=== PATIENT | male | born 1990 | race Caucasian/White ===

== ENCOUNTER 2021-08-14 14:29 | Emergency (ER) | payer OTHER, SELFPAY ==
--- NOTE | ~2021-08-14 | XR_ITS ---
EXAM: XR tibia fibula RT 2V DATE: 08/14/2021 15:04 HISTORY: hit dee on [place] 10 days ago, brusing, swelling into ankle . COMPARISON: None available. FINDINGS: Normal mineralization. No fracture or dislocation. No lytic or blastic lesion. Joint space s are maintained. No erosion or periosteal change. Soft tissues within normal limits. IMPRESSION: No acute osseous finding in the right tibia or fibula. Reviewed, dictated and finalized at location K.
--- NOTE | 2021-08-14 14:35 | ER_ITS ---
This report was moved to the correct visit on 08/18/2021. Original report was signed by Perri Pablo APN 08/14/211999. HPI - Extremity Injury (Lower) General Stated Complaint: second opinion on right leg injury Time Seen by Provider: 08/14/21 14:30 Source: patient and RN notes reviewed History of Present Illness HPI Narrative: Patient is a 31-year-old male who presents the urgent care with complaints of right leg injury. Patient states that on 05 August he hit his dee on a trailer axle. Patient states he is proceeded to do normal activity on the and . States that he worked at [employer] show on his feet all day on the and after it was over he went to the emergency room due to the swelling and pain. Patient states that they did x-rays, from the knee down through the ankle which were all negative. Patient has been using crutches and keeping the leg elevated with ice and ibuprofen without much relief. Patient denies any chest pain or shortness of breath. States the swelling has not necessarily gotten worse but has not gotten much better since day 1. Patient reports of increased bruising and settling of the swelling to the ankle. No other acute complaints. No acute distress noted. Patient aware of the plan of care. Some parts of this dictation were generated by voice recognition software and may contain typographical and/or grammatical inaccuracies. Related Data Home Medications Medication Instructions Recorded Confirmed ibuprofen 600 mg tablet 1 tablet PO QID 08/14/21 08/14/21 Allergies Allergy/AdvReac Type Severity Reaction Status Date / Time amoxicillin Allergy Intermediate Rash Verified 08/14/21 14:58 Penicillins Allergy Intermediate Rash Verified 08/14/21 14:58 Review of Systems Review of Systems: CONSTITUTIONAL: Denies fever, chills, or sweats. EYES: Denies visual changes, redness, or discharge. ENT: Denies rhinorrhea, congestion, sore throat, or otalgia. CARDIOVASCULAR: Denies chest pain, palpitations, or edema. RESPIRATORY: Denies cough or dyspnea. GASTROINTESTINAL: Denies abdominal pain, nausea, vomiting, or diarrhea. GENITOURINARY: Denies dysuria or hematuria. SKIN: Denies rash or itching. MUSCULOSKELETAL: Reports of right lleg swelling/bruising/pain NEUROLOGIC: Denies headache, numbness, or weakness. All other systems reviewed are negative, except as documented in HPI. PMFSH Comments At the time of my signature, I reviewed and agree with the nursing past medical, surgical, social, and family history. There is no relevant family history pertinent to the patient complaint. Exam Narrative: GENERAL: This is a well-nourished, well-developed patient, in no apparent distress. HEAD: normocephalic, atraumatic. EYES: PERRL. Sclera clear/white. Vision is grossly intact. EARS: External ears normal NOSE: External nose normal with no obvious nasal discharge, nares without redness, no rhinorrhea. THROAT: Mucous membranes moist NECK: Neck supple CARDIOVASCULAR: Regular rate and rhythm without murmurs, gallops, or rubs. RESPIRATORY: Clear to auscultation. Breath sounds equal bilaterally. No wheezes, rales, or rhonchi. SKIN: Moderate scattered regions of ecchymosis to the right lower extremity extending from the right calf to the right foot NEURO: awake, alert, and oriented to person, place and time. There were no obvious focal neurologic abnormalities. EXTREMITIES: Nonpitting lower right extremity edema from the right mid tibia to the right foot. Positive strong right pedal pulse with capillary refill less than 2 seconds. Range of motion to right lower extremity within normal limits with exacerbated pain on flexion, weightbearing
[2021-08-14 14:44] VITALS: BP 144/84; PULSE 76; RESP 16; TEMP 36.9; O2SAT 100
--- NOTE | 2021-08-14 16:06 | ED.LOWEXIN ---
HPI - Extremity Injury (Lower) General Chief Complaint: Extremity Injury, Lower Stated Complaint: second opinoin on right leg injury Related Data Home Medications Medication Instructions Recorded Confirmed ibuprofen 600 mg tablet 1 tablet PO QID 08/14/21 08/14/21 Allergies Allergy/AdvReac Type Severity Reaction Status Date / Time amoxicillin Allergy Intermediate Rash Verified 08/14/21 14:58 Penicillins Allergy Intermediate Rash Verified 08/14/21 14:58 Course Vital Signs Vital signs: Vital Signs Temperature 98.5 F 08/14/21 14:44 Pulse Rate 76 08/14/21 14:44 Respiratory Rate 16 08/14/21 14:44 Blood Pressure 144/84 H 08/14/21 14:44 Pulse Oximetry 100 08/14/21 14:44 Oxygen Delivery Room Air 08/14/21 14:44 Temperature 98.5 F 08/14/21 14:44 Pulse Rate 76 08/14/21 14:44 Respiratory Rate 16 08/14/21 14:44 Blood Pressure 144/84 H 08/14/21 14:44 Pulse Oximetry 100 08/14/21 14:44 Oxygen Delivery Room Air 08/14/21 14:44 Reviewed-patient is informed that they may have pre-hypertension or hypertension based on a blood pressure reading in the department. I recommend the patient call the primary care provider listed on their discharge instructions or a physician of their choice this week to arrange follow-up for further evaluation of possible pre-hypertension or hypertension. Discharge Plan Discharge Prescriptions: No Action ibuprofen 600 mg tablet 1 tablet PO QID Follow-up/Referrals: UNKNOWN,DOCTOR [Primary Care Provider] -
== END 2021-08-14 15:29 | disposition home or self-care (01) ==
LOC: EXPBETH 14:36
PROVIDERS: Emergency Provider Nurse Practitioner Family
DX: S80.11XA Contusion of right lower leg, initial encounter (principal); W22.8XXA Striking against or struck by other objects, initial encounter
CPT/HCPCS: 73590; 99203; G0463

== ENCOUNTER 2021-09-07 08:26 | Outpatient (CLI) | payer OTHER, SELFPAY ==
[2021-09-07 18:26] LABS: Alanine Aminotransferase 14 U/L (6-50); Albumin Level 5.3 g/dL (3.5-5.1); Alkaline Phosphatase 83 U/L (38-126); Anion Gap 10 mmol/L (8-16); Aspartate Amino Transferase 20 U/L (17-59); Bilirubin,Total 1.1 mg/dL (0.2-1.3); Blood Urea Nitrogen 19 mg/dL (9-20); Calcium 9.8 mg/dL (8.4-10.2); Carbon Dioxide 29 mmol/L (22-30); Chloride 101 mmol/L (98-107); Cholesterol 161 mg/dL (0-200); Estimated Glomerular Filt Rate > 60; Glucose 86 mg/dL (65-110); HDL Direct 48 mg/dL; Hematocrit 49.5 % (42.0-52.0); Hemoglobin 15.9 g/dL (14.0-18.0); Mean Corpuscular HGB Conc 32.1 g/dl (32-36); Mean Corpuscular Hemoglobin 29.2 pg (26-34); Mean Platelet Volume 11.5 fl (7.4-10.4); Platelet Count Result 203 k/mm3 (150-375); Potassium 4.1 mmol/L (3.4-5.0); Red Blood Count 5.44 M/mm3 (4.6-6.20); Red Cell Distribution Width 13.1 % (11.5-14.5); Sodium 140 mmol/L (137-145); Triglycerides 110 mg/dL (<150); White Blood Count 10.2 K/mm3 (4.5-10.0)
[2021-09-07 18:36] LABS: LDL Cholesterol Direct 87 mg/dL
[2021-09-07 18:42] LABS: Vitamin D 25 Hydroxy 19.5 ng/mL
[2021-09-08 07:36] LABS: Rapid Plasma Reagin Non-Reactive (NonReactive)
[2021-09-10 17:55] LABS: HIV 1 2 Ag Ab 4th Gen w Rflxs Non-reactive (Non-reactive)
== END 2021-09-07 08:27 | disposition home or self-care (01) ==
PROVIDERS: PCP Family Medicine; Visit Provider Family Medicine
DX: F32.A Depression, unspecified (principal); F41.9 Anxiety disorder, unspecified; K21.9 Gastro-esophageal reflux disease without esophagitis; T78.40XA Allergy, unspecified, initial encounter; Z00.00 Encounter for general adult medical examination without abnormal findings
CPT/HCPCS: 36415; 80053; 80061; 82306; 84443; 85027; 86592; 87389; 87491; 87591

== ENCOUNTER 2022-02-21 11:10 | Emergency (ER) | payer OTHER, SELFPAY ==
[2022-02-21 11:17] VITALS: BP 124/72; PULSE 67; RESP 18; TEMP 36.8; O2SAT 100
--- NOTE | 2022-02-21 13:03 | ED.SKABFB ---
HPI - Skin/Abscess/Foreign Bdy General Chief complaint: Skin/Abscess/Foreign Body Stated complaint: Suture Removal Time Seen by Provider: 02/21/22 13:03 Source: patient Mode of arrival: ambulatory Limitations: no limitations History of Present Illness HPI narrative: 31 y/o male presented for suture removal. Seven Sutures placed 10 days ago at outside hospital to forehead. Patient has Changed the dressing over the site daily since sutures were placed. Denies redness, swelling, drainage or fever. Related Data Home Medications Medication Instructions Recorded Confirmed No Home Medications 02/21/22 02/21/22 Allergies Allergy/AdvReac Type Severity Reaction Status Date / Time amoxicillin Allergy Intermediate Rash Verified 02/21/22 12:32 Penicillins Allergy Intermediate Rash Verified 02/21/22 12:32 Review of Systems Review of Systems: CONSTITUTIONAL: Denies body aches, fever, chills, or sweats. EYES: Denies visual changes, redness, or discharge. ENT: Denies rhinorrhea, congestion CARDIOVASCULAR: Denies chest pain, palpitations, or edema. RESPIRATORY: Denies cough or dyspnea. GASTROINTESTINAL: Denies abdominal pain, nausea, vomiting, or diarrhea. SKIN: per HPI MUSCULOSKELETAL: Denies back pain, joint pain, or myalgia. NEUROLOGIC: Denies headache, numbness, tingling, or weakness. [facility] Family History Family History Father Heart disease Hypertension Mother Cancer Kidney Diabetes mellitus Sibling Depression Grandparent Cancer Kidney Diabetes mellitus Hypertension Heart disease CHF Grandparent Hypertension Heart disease CHF Social History Social History Smoking status: Never smoker Alcohol intake: current Alcohol use details: 1-3 glasses a month Substance use: never Substance use type: does not use Additional occupation/education comments: [employer] Gender identity (if verbalized by the patient): Male Agree to blood products: Yes Comments At time of signature, I have reviewed and agree with nursing past medical, surgical, social and family history unless otherwise noted. Please see nursing chart for further information. There is no relevant family history pertinent to the presenting complaint Exam Narrative: GENERAL: Well-appearing HEAD: Normocephalic, atraumatic. EYES: conjunctivae clear, and EOMI. ENT: Mucous membranes moist. Oropharynx without edema, erythema or lesions. NECK: Supple. No lymphadenopathy CHEST: Clear to auscultation. HEART: Regular rate and rhythm. SKIN: Warm, dry. approx 2.5cm linear laceration to left forehead with [address], No surrounding erythema, induration, purulence NEURO: Alert and oriented x3. Course Course Emergency Course: Patient is aware of diagnosis, understands and agrees to treatment plan. Anticipatory guidance given. Patient agrees to follow-up as directed and is aware of reasons to seek care at the emergency department. Portions of this record may have been created with voice recognition software Level of Care: Express Care Visit Vital Signs Vital signs: Vital Signs Temperature 98.3 F 02/21/22 11:17 Pulse Rate 67 02/21/22 11:17 Respiratory Rate 18 02/21/22 11:17 Blood Pressure 124/72 02/21/22 11:17 Pulse Oximetry 100 02/21/22 11:17 Oxygen Delivery Room Air 02/21/22 11:17 Temperature 98.3 F 02/21/22 11:17 Pulse Rate 67 02/21/22 11:17 Respiratory Rate 18 02/21/22 11:17 Blood Pressure 124/72 02/21/22 11:17 Pulse Oximetry 100 02/21/22 11:17 Oxygen Delivery Room Air 02/21/22 11:17 Reviewed Procedures Other Procedure Procedure 1: Other Procedure: 7 sutures removed from the linear laceration to the left forehead, without difficulty. Patient tolerated well. Wound remains scabbed and closed.
== END 2022-02-21 13:15 | disposition home or self-care (01) ==
PROVIDERS: Emergency Provider Nurse Practitioner Family
DX: S01.81XD Laceration without foreign body of other part of head, subsequent encounter (principal); X58.XXXD Exposure to other specified factors, subsequent encounter
CPT/HCPCS: 99211; G0463